=== PATIENT | female | born 1960 | race Caucasian/White ===

== ENCOUNTER 2018-05-06 13:18 | Outpatient (CLI) | payer OTHER ==
--- NOTE | 2018-05-07 09:38 | DEXA Report ---
Procedure Date: 05/06/2018 Accession Number: [id number] / [id number] Procedure: DEX - Dexa Spine and/or Hip CPT Code: FULL RESULT: EXAM: Dexa Spine and/or Hip DATE: 05/06/2018 1:48 PM CLINICAL HISTORY: POST MENOPAUSAL TECHNIQUE: Dual energy x-ray absorptiometry (DXA) was performed on a [employer] System. Regions measured are the AP Spine, femoral neck, and if needed forearm. COMPARISON: None. In accordance with the International Society for Clinical Densitometry (ISCD) guidelines, data from previous exams may be reanalyzed using current recommendations and techniques. This is done to allow a more accurate basis for comparison with the current study. FINDINGS: The data for the lumbar spine is as follows: BMD (g/cm/cm) T-SCORE Z-SCORE REGION L1 1.119 -0.1 0.9 L2 1.113 -0.7 0.2 L3 1.250 0.4 1.4 L4 1.201 0.0 1.0 TOTAL 1.173 -0.1 0.9 NOTE: All evaluable vertebrae are used for classification The data for the hip is as follows: BMD (g/cm/cm) T-SCORE Z-SCORE REGION Neck 0.857 -1.3 -0.2 TOTAL 0.866 -1.1 -0.4 NOTE: The femoral neck or total proximal femur, whichever is lowest, is used for classification. IMPRESSION: THE WHO CLASSIFICATION BASED ON THE INTERNATIONAL REFERENCE STANDARD IS OSTEOPENIA. THE FRACTURE RISK IS INCREASED. Please note that a prior DEXA was performed on different equipment which cannot be compared to the current examination. RECOMMENDATION: Patients with diagnosis of osteoporosis or osteopenia should have regular bone mineral density assessment. For those eligible for Medicare, routine testing is allowed once every 2 years. Testing frequency can be increased for patients who have rapidly progressing disease or for those who are receiving medical therapy to restore bone mass. COMMENT: World Health Organization (WHO) definitions for osteoporosis and osteopenia: NORMAL BMD: T-score at -1.0 or higher, fracture risk is low OSTEOPENIA BMD: T-score between -1.0 and -2.5, fracture risk is increased. OSTEOPOROSIS BMD: T-score at -2.5 or lower, fracture risk is high. National Osteoporosis Foundation recommends: 1. Obtain adequate dietary calcium (at least 1200 mg per day) and vitamin D (400-800 international units per day). 2. Participate, as appropriate, in regular weightbearing and muscle-strengthening exercise. 3. Avoid tobacco use and reduce alcohol and caffeine intake. 4. For more detailed information see the website at www.NOF.org.
== END 2018-05-06 13:19 | disposition home or self-care (01) ==
LOC: DI 13:18
PROVIDERS: ATTEND Family Medicine
DX: Z13.820 Encounter for screening for osteoporosis (principal); M85.88 Other specified disorders of bone density and structure, other site; Z78.0 Asymptomatic menopausal state
CPT/HCPCS: 77080

== ENCOUNTER 2019-09-28 08:27 | Outpatient (CLI) | payer OTHER ==
--- NOTE | 2019-09-28 21:18 | XRAY Report ---
Reason: [id number] COUGH Procedure Date: 09/28/2019 Accession Number: [id number] / [id number] Procedure: XRS - Chest 2 View X-Ray CPT Code: 49994 Final Report FULL RESULT: EXAM: CHEST RADIOGRAPHY EXAM DATE: 09/28/2019 08:47 AM. CLINICAL HISTORY: Chronic cough. COMPARISON: XR CHEST PA AND LAT 11/14/2007 11:20 AM. TECHNIQUE: 2 views. FINDINGS: Lungs/Pleura: No focal opacities evident. No peribronchial cuffing or interstitial abnormality. No pleural effusion. No pneumothorax. Normal volumes. Mediastinum: Heart and mediastinal contours are unremarkable. Other: None. IMPRESSION: Normal 2-view chest radiography. [facility]
== END 2019-09-28 08:28 | disposition home or self-care (01) ==
LOC: DI.S 08:27
PROVIDERS: ATTEND Physician Assistant
DX: R05 Cough (principal)
CPT/HCPCS: 71046

== ENCOUNTER 2023-05-12 18:42 | Outpatient (CLI) | payer BC, OTHER | END 2023-05-12 23:59 | disposition short-term general hospital (02) | LOC: EMS 18:42 | DX: R07.89 Other chest pain (principal) | CPT/HCPCS: A0425; A0427 ==

== ENCOUNTER 2023-06-06 13:32 | Outpatient (CLI) | payer BC | END 2023-06-06 13:33 | disposition home or self-care (01) | LOC: RT 13:32 | PROVIDERS: ATTEND Internal Medicine | DX: R91.8 Other nonspecific abnormal finding of lung field (principal) | CPT/HCPCS: 94060; 94727; 94729 ==

== ENCOUNTER 2023-06-12 09:19 | Outpatient (CLI) | payer BC ==
--- NOTE | 2023-06-16 23:41 | CT Report ---
PROCEDURE: CHEST WO INDICATIONS: GROUND GLASS OPACITY TECHNIQUE: Noncontrast 1mm axial images were acquired from the pulmonary apices to the posterior costophrenic an gles. Axial 5 mm soft tissue kernel reconstructions were performed as well as 8 mm axial MIP and cor onal and sagittal 5 mm reformations. For radiation dose reduction, the following was used: automate d exposure control, adjustment of mA and/or kV according to patient size. COMPARISON: X-ray 09/28/2019 FINDINGS: Image quality: Excellent. Lungs and pleura: No consolidation. No pleural effusions. No pneumothorax. Part solid nodules in the upper lobes. These include: -1.5 cm, posterior right upper lobe (series 3, image 31). -2.5 cm, right lung apex (series 3, image 40). -2.6 cm, left lung apex (series 3, image 35). Mediastinum: Heart size is normal. No pericardial effusion. No large vessel abnormality. No mediastin al adenopathy by size criteria. Chest wall and lower neck: Thyroid is unremarkable. No axillary or supraclavicular adenopathy by size . Bones: No aggressive osseous abnormality. Upper Abdomen: Gallbladder sludge. Subcentimeter hypoattenuating liver lesion, too small to character ize but probably a small cyst. IMPRESSION: Part solid nodules in the lung apices, favoring a post infectious/inflammatory process. Given size, r ecommend short-term follow-up (3-6 months) to ensure resolution. Reviewed by: Shai Somers on 06/16/2023 11:40 PM PDT Approved by: Shai Somers on 06/16/2023 11:40 PM PDT Station ID: [id number]
== END 2023-06-12 09:20 | disposition home or self-care (01) ==
LOC: DI 09:19
PROVIDERS: ATTEND Internal Medicine
DX: R91.8 Other nonspecific abnormal finding of lung field (principal)

== ENCOUNTER 2023-09-14 08:56 | Outpatient (CLI) | payer BC ==
--- NOTE | 2023-09-14 09:43 | XRAY Report ---
PROCEDURE: Chest 2 View X-Ray INDICATIONS: CHEST PAIN TECHNIQUE: 2 views of the chest were acquired. COMPARISON: CT of chest dated 06/12/2023 and chest radiograph dated 09/28/2019. FINDINGS: Surgical changes and devices: None. Lungs and pleura: No pleural effusions or pneumothorax. Lungs are clear. Mediastinum: Mediastinal contours appear normal. Heart size is normal. Bones and chest wall: No suspicious bony lesions. Overlying soft tissues appear unremarkable. IMPRESSION: No acute cardiopulmonary process. Reviewed by: Rudy Stallings MD on 09/14/2023 9:41 AM PST Approved by: Rudy Stallings MD on 09/14/2023 9:41 AM PST Station ID: [id number]
== END 2023-09-14 08:57 | disposition home or self-care (01) ==
LOC: DI 08:56
PROVIDERS: ATTEND Internal Medicine Critical Care Medicine
DX: D09.9 Carcinoma in situ, unspecified (principal)

== ENCOUNTER 2023-12-02 13:21 | Outpatient (CLI) | payer OTHER | END 2023-12-02 13:22 | disposition home or self-care (01) | LOC: RT 13:21 | PROVIDERS: ATTEND Internal Medicine Medical Oncology | DX: D02.20 Carcinoma in situ of unspecified bronchus and lung (principal); R06.00 Dyspnea, unspecified | CPT/HCPCS: 94010; 94727; 94729 ==